=== PATIENT | female | born 1990 ===

== ENCOUNTER 2017-07-21 08:13 | Emergency (ER) | payer MEDICAID ==
[2017-07-21] MEDS ORDERED: Sodium Chloride 0.9% 1,000 ML IV STA (08:32)
[2017-07-21 08:34] VITALS: TEMP 98.3
--- NOTE | 2017-07-21 08:39 | ED PDOC ---
Arrival/HPI - General Chief Complaint: Abdominal Pain Time Seen by Provider: 07/21/17 08:22 Historian: Patient - History of Present Illness Narrative History of Present Illness (Text): 07/21/17 08:36 A 27 year old female, with no significant past medical history, presents to the emergency room complaining of 2 week duration right sided abdominal pain and joint pain. She describes the pain as sharp and intermittent. The patient states that she has also been experiencing decreased appetite, a decrease in urine output, and some loose stools. The patient denies fevers, chills, headache , dizziness, sore throat, cough, chest pain, shortness of breath, dyspnea on exertion, nausea, vomiting, diarrhea, neck/back pain, or any other complaint. Time/Duration: Other (2 weeks) Symptom Onset: Gradual Symptom Course: Unchanged Activities at Onset: Rest, Light Context: Home Past Medical History - Provider Review Nursing Documentation Reviewed: Yes - Infectious Disease Hx of Infectious Diseases: None - Psychiatric Hx Substance Use: No - Anesthesia Hx Anesthesia: No Hx Anesthesia Reactions: No Hx Malignant Hyperthermia: No Family/Social History - Physician Review Nursing Documentation Reviewed: Yes Family/Social History: No Known Family HX Smoking Status: Never Smoked Hx Alcohol Use: No Hx Substance Use: No Allergies/Home Meds Allergies/Adverse Reactions: Allergies No Known Allergies Allergy (Verified 07/21/17 08:31) Review of Systems - Physician Review All systems were reviewed & negative as marked: Yes - Review of Systems Constitutional: absent: Fevers, Night Sweats ENT: absent: Sore Throat Respiratory: absent: SOB, Cough Cardiovascular: absent: Chest Pain, GOODE Gastrointestinal: Abdominal Pain, Stool Changes (Loose stools), Appetite Changes (Decreased appetite). absent: Diarrhea, Nausea, Vomiting Genitourinary Female: Urine Output Changes (Decreased urine output.) Musculoskeletal: Arthralgias. absent: Back Pain, Neck Pain Neurological: absent: Headache, Dizziness Physical Exam Vital Signs Reviewed: Yes Vital Signs Temp Pulse Resp BP Pulse Ox 07/21/17 13:02 98.3 F 74 18 100/58 L 99 07/21/17 12:00 82 18 102/79 98 07/21/17 10:14 88 18 110/79 98 07/21/17 08:34 98.3 F 07/21/17 08:27 116 H 20 109/58 L 99 Temperature: Afebrile Blood Pressure: Hypotensive Pulse: Tachycardic Respiratory Rate: Normal Appearance: Positive for: Well-Appearing, Non-Toxic, Comfortable Pain Distress: None Mental Status: Positive for: Alert and Oriented X 3 - Systems Exam Head: Present: Atraumatic, Normocephalic Pupils: Present: PERRL Extroacular Muscles: Present: EOMI Conjunctiva: Present: Normal Mouth: Present: Moist Mucous Membranes Neck: Present: Normal Range of Motion Respiratory/Chest: Present: Clear to Auscultation, Good Air Exchange. No: Respiratory Distress, Accessory Muscle Use Cardiovascular: Present: Tachycardic Abdomen: Present: Tenderness (Tenderness to RUQ and RLQ), Guarding. No: Rebound , McBurney's Point Tender Back: Present: Normal Inspection Upper Extremity: Present: Normal Inspection. No: Cyanosis, Edema Lower Extremity: Present: Normal Inspection. No: Edema Neurological: Present: GCS=15, CN II-XII Intact, Speech Normal Skin: Present: Warm, Dry, Normal Color. No: Rashes Psychiatric: Present: Alert, Oriented x 3, Normal Insight, Normal Concentration Medical Decision Making ED Course and Treatment: 07/21/17 08:42 Impression: A 27 year old female presents to the emergency room complaining of 2 week duration sharp, intermittent right sided abdominal pain, joint pain, decreased appetite, and loose stools. r/o Cholecytitis r/o Appy Plan: -- Abdomen/Pelvis CT -- Labs -- Pepcid -- Reassess and disposition Progress Notes: PROCEDURE: CT Abdomen and Pelvis with contrast Dictator : Renu Ordoñez MD Report Date : 07/21/2017 12:15:36 IMPRESSION: Unremarkable CT scan of the abdomen for acute inflammatory process. No appreciable CT scan evidence of cholecystitis or appendicitis. 07/21/17 12:52: On re-evaluation the patient feels better and is in no acute distress. Abdomen is non-tender. Patient is tolerating fluids. I have discussed the results and plan with the patient, who expresses understanding. Patient is in agreement with the plan to discharge the patient home. Patient is stable for discharge. Patient was instructed to follow up with PMD in 1-2 days or return if symptoms persist/worsen or new concerning symptoms arise. - Lab Interpretations Lab Results: 07/21/17 09:00 07/21/17 09:00 Lab Results 07/21/17 09:00: Sodium 141, Potassium 3.5 L, Chloride 103, Carbon Dioxide 22, Anion Gap 19, BUN 9, Creatinine 0.5 L, Est GFR ( Amer) > 60, Est GFR (Non -Af Amer) > 60, Random Glucose 92, Calcium 9.1, Total Bilirubin 0.3, AST 28, ALT 28, Alkaline Phosphatase 82, Total Protein 7.7, Albumin 4.7, Globulin 3.0, Albumin/Globulin Ratio 1.6, Lipase 74 07/21/17 09:00: WBC 10.7, RBC 4.77, Hgb 12.0, Hct 36.8, MCV 77.1 L, MCH 25.2, MCHC 32.6, RDW 16.0 H, Plt Count 311, MPV 9.5, Gran % 71.6 H, Lymph % (Auto) 16.4 L, Ponce % (Auto) 7.9 H, Eos % (Auto) 3.8, Baso % (Auto) 0.3, Gran # 7.66 H , Lymph # (Auto) 1.8, Ponce # (Auto) 0.8 H, Eos # (Auto) 0.4, Baso # (Auto) 0.03 I have reviewed the lab results: Yes - RAD Interpretation Radiology Orders: 07/21/17 08:32 ABD PELVIS PO & IV CONTRAST [CT] Stat - Medication Orders Current Medication Orders: Discontinued Medications Famotidine (Pepcid) 20 mg IVP STAT STA Stop: 07/21/17 08:33 Last Admin: 07/21/17 08:59 Dose: 20 mg IVP Administration Document 07/21/17 08:59 EWO (Rec: 07/21/17 09:00 SNEHA [id number]) Charges for Administration # of IVP Administrations 1 Sodium Chloride (Sodium Chloride 0.9%) 1,000 mls @ 1,000 mls/hr IV .Q1H STA Stop: 07/21/17 09:31 Last Admin: 07/21/17 09:00 Dose: 1,000 mls/hr eMAR Start Stop Document 07/21/17 09:00 SNEHA (Rec: 07/21/17 09:00 SNEHA [id number]) Intravenous Solution Start Date 07/21/17 Start Time 09:00 End Date 07/21/17 End time 10:00 Total Infusion Time 60 Ketorolac Tromethamine (Toradol) 30 mg IVP STAT STA Stop: 07/21/17 08:33 Last Admin: 07/21/17 09:00 Dose: 30 mg MAR Pain Assessment Document 07/21/17 09:00 EWO (Rec: 07/21/17 09:00 [facility] [id number]) Pain Reassessment Is this a pain reassessment? No Sleep Is patient sleeping during reassessment? No Presence of Pain Presence of Pain Yes Pain Scale Used Pain Scale Used Numeric Location Left, Right or Bilateral Right Upper or Lower Lower Pain Location Body Site Abdomen Description Description Intermittent Intensity of Pain at present 3 IVP Administration Document 07/21/17 09:00 EWO (Rec: 07/21/17 09:00 [facility] [id number]) Charges for Administration # of IVP Administrations 1 Potassium Chloride (K-Dur 20 Meq Er Tab) 40 meq PO STAT STA Stop: 07/21/17 09:18 Last Admin: 07/21/17 09:32 Dose: 40 meq - Scribe Statement The provider has reviewed the documentation as recorded by the Claritza Perry Provider Scribe Attestation: All medical record entries made by the Scribisaias were at my direction and personally dictated by me. I have reviewed the chart and agree that the record accurately reflects my personal performance of the history, physical exam, medical decision making, and the department course for this patient. I have also personally directed, reviewed, and agree with the discharge instructions and disposition. Disposition/Present on Arrival - Present on Arrival Any Indicators Present on Arrival: No History of DVT/PE: No History of Uncontrolled Diabetes: No Urinary Catheter: No History of Decub. Ulcer: No History Surgical Site Infection Following: None - Disposition Have Diagnosis and Disposition been Completed?: Yes Diagnosis: Abdominal pain Disposition: HOME/ ROUTINE Disposition Time: 13:02 Patient Plan: Discharge Condition: IMPROVED Discharge Instructions (ExitCare): Acute Abdomen (Belly Pain) Additional Instructions: Ms Maier, thank you for letting us take care of you today. Your provider was Dr. Griffin. You were treated for Abdominal Pain. The emergency medical care you received today was directed at your acute symptoms. If you were prescribed any medication, please fill it and take as directed. It may take several days for your symptoms to resolve. Return to the Emergency Department if your symptoms worsen, do not improve, or if you have any other problems. Please contact your doctor or call one of the physicians/clinics you have been referred to that are listed on the Patient Visit Information form that is included in your discharge packet. Bring any paperwork you were given at discharge with you along with any medications you are taking to your follow up visit. Our treatment cannot replace ongoing medical care by a primary care provider (PCP) outside of the emergency department. Thank you for allowing the [facility] team to be part of your care today. If you had an X-Ray or CT scan: A Radiologist will review the ED reading if any change in treatment is needed we will contact you. If you had a blood, urine, or wound culture: It will take several days for the results, if any change in treatment is needed we will contact you. If you had an STI test: It will take 48 hours for the results. Please call after 1 week if you have not heard back. Prescriptions: Ranitidine HCl [Zantac] 150 mg PO BID PRN #30 tablet PRN Reason: Pain, Mild (1-3) Referrals: [facility] [place] - Follow up with primary [facility] [place] [facility] [place], [Non-Staff] - Follow up with primary Forms: [employer] ([place]rainian), WORK NOTE
[2017-07-21] MEDS ORDERED: Iohexol 240 (50 ml) ONE (08:59)
[2017-07-21 09:06] LABS: BASO # 0.03 K/mm3 (0.0-2.0); BASO % 0.3 % (0.0-3.0); EOS # 0.4 (0.0-0.7); EOS % 3.8 % (1.5-5.0); GRAN # 7.66 (1.4-6.5); GRAN % 71.6 % (50.0-68.0); LYMPH # 1.8 (1.2-3.4); LYMPH % 16.4 % (22.0-35.0); MEAN CELL VOLUME 77.1 fl (80.0-105.0); MEAN CORPUSCULAR HEMOGLOBIN 25.2 pg (25.0-35.0); MEAN CORPUSCULAR HGB CONC 32.6 g/dl (31.0-37.0); MEAN PLATELET VOLUME 9.5 fl (7.0-11.0); MONO # 0.8 (0.1-0.6); MONO % 7.9 % (1.0-6.0); RBC 4.77 10^6/uL (3.5-6.1); WHITE BLOOD COUNT 10.7 10^3/ul (4.5-11.0)
[2017-07-21 09:15] LABS: ALB/GLOB RATIO 1.6 (1.1-1.8); ALBUMIN 4.7 g/dL (3.0-4.8); ALT/SGPT 28 U/L (7-56); AST/SGOT 28 U/L (14-36); BLOOD UREA NITROGEN 9 mg/dL (7-21); CALCIUM 9.1 mg/dL (8.4-10.5); GFR AFRICAN-AMERICAN > 60; GFR NON-AFRICAN AMERICAN > 60; LIPASE 74 U/L (23-300)
[2017-07-21] MEDS ORDERED: Potassium Chloride 20 mEq ER Tab PO STA (09:17)
[2017-07-21] MEDS ORDERED: Iohexol 350 MG/100 ML VIAL ONE (11:38)
--- NOTE | 2017-07-21 12:17 | CT ---
PROCEDURE: CT Abdomen and Pelvis with contrast HISTORY: abd pain r/o appy r/o cholecystitis COMPARISON: None. TECHNIQUE: Contrast dose: 100 milliliters visi 350 Radiation dose: Total exam DLP = 208 mGy-cm. This CT exam was performed using one or more of the following dose reduction techniques: Automated exposure control, adjustment of the mA and/or kV according to patient size, and/or use of iterative reconstruction technique. FINDINGS: LOWER THORAX: No infiltrate or effusion is seen at the lung bases. Visualized esophagus, stomach, and duodenum are unremarkable although the stomach is not adequately distended limiting evaluation for wall thickening. LIVER: Liver shows no evidence of focal mass or intrahepatic ductal dilatation. Liver is normal in size. GALLBLADDER AND BILE DUCTS: Unremarkable. PANCREAS: Unremarkable. No gross lesion or ductal dilatation. SPLEEN: Unremarkable. ADRENALS: Unremarkable. No mass. KIDNEYS AND URETERS: Unremarkable. No hydronephrosis. No solid mass. VASCULATURE: Unremarkable. No aortic aneurysm. BOWEL: Unremarkable. No obstruction. No gross mural thickening. APPENDIX: Normal appendix. PERITONEUM: Unremarkable. No free fluid. No free air. LYMPH NODES: Unremarkable. No enlarged lymph nodes. BLADDER: Unremarkable. REPRODUCTIVE: Unremarkable. BONES: No acute fracture. OTHER FINDINGS: None. IMPRESSION: Unremarkable CT scan of the abdomen for acute inflammatory process. No appreciable CT scan evidence of cholecystitis or appendicitis.
[2017-07-21 13:01] VITALS: RESP 18
[2017-07-21 13:03] VITALS: BP 100/58; PULSE 74; O2SAT 99
== END 2017-07-21 13:03 | disposition home or self-care (01) ==
LOC: ED 08:13
DX: R10.9 Unspecified abdominal pain (principal)
CPT/HCPCS: 74177; 80053; 83690; 85025; 96361; 96374; 96375; 99284; J1885; J7040; Q9966; Q9967

== ENCOUNTER 2018-05-09 22:03 | Emergency (ER) | payer MEDICAID ==
--- NOTE | 2018-05-09 22:26 | ED PDOC ---
Arrival/HPI - General Chief Complaint: Fever Time Seen by Provider: 05/09/18 22:08 Historian: Patient - History of Present Illness Narrative History of Present Illness (Text): 05/09/18 22:23 28 year old female, with no significant past medical history, presents to the emergency department with fever and cough, since today. Patient states she also has associated headache, and body aches. Patient states her temperature at home was 102. Patient informs she did not try any NSAID antipyretic at home. Patient denies any dysuria, chest pain, shortness of breath, abdominal pain, nausea, vomiting, diarrhea, back pain, neck pain, or any other complaint. Time/Duration: 24 hours Symptom Onset: Gradual Symptom Course: Unchanged Quality: Aching Activities at Onset: Light Context: Home Past Medical History - Provider Review Nursing Documentation Reviewed: Yes - Infectious Disease Hx of Infectious Diseases: None - Reproductive Currently : No - Psychiatric Hx Substance Use: No - Anesthesia Hx Anesthesia: No Hx Anesthesia Reactions: No Hx Malignant Hyperthermia: No Family/Social History - Physician Review Nursing Documentation Reviewed: Yes Family/Social History: No Known Family HX Smoking Status: Never Smoked Hx Alcohol Use: No Hx Substance Use: No Allergies/Home Meds Allergies/Adverse Reactions: Allergies No Known Allergies Allergy (Verified 05/09/18 22:16) Review of Systems - Physician Review All systems were reviewed & negative as marked: Yes - Review of Systems Constitutional: Fevers Respiratory: Cough. absent: SOB Cardiovascular: absent: Chest Pain Gastrointestinal: absent: Abdominal Pain, Diarrhea, Nausea, Vomiting Genitourinary Female: absent: Dysuria Musculoskeletal: absent: Back Pain, Neck Pain Neurological: Headache Physical Exam Vital Signs Reviewed: Yes Vital Signs Temp Pulse Resp BP Pulse Ox 05/09/18 22:15 102.2 F H 116 H 18 112/76 98 Temperature: Febrile Blood Pressure: Normal Pulse: Tachycardic Respiratory Rate: Normal Appearance: Positive for: Well-Appearing, Non-Toxic, Comfortable Pain Distress: None Mental Status: Positive for: Alert and Oriented X 3 - Systems Exam Head: Present: Atraumatic, Normocephalic Pupils: Present: PERRL Extroacular Muscles: Present: EOMI Conjunctiva: Present: Normal Mouth: Present: Moist Mucous Membranes Neck: Present: Normal Range of Motion Respiratory/Chest: Present: Clear to Auscultation, Good Air Exchange. No: Respiratory Distress, Accessory Muscle Use Cardiovascular: Present: Regular Rate and Rhythm, Normal S1, S2. No: Murmurs Abdomen: No: Tenderness, Distention, Peritoneal Signs Back: Present: Normal Inspection Upper Extremity: Present: Normal Inspection. No: Cyanosis, Edema Lower Extremity: Present: Normal Inspection. No: Edema Neurological: Present: GCS=15, CN II-XII Intact, Speech Normal Skin: Present: Warm, Dry, Normal Color. No: Rashes Psychiatric: Present: Alert, Oriented x 3, Normal Insight, Normal Concentration Medical Decision Making ED Course and Treatment: 05/09/18 22:29 Impression: 28 year old female presents with flu-like symptoms Plan: -- Chest X-ray -- Tylenol -- Rapid Strep -- Influenza A/B -- Urinalysis -- Reassess and disposition Prior Visits: Notes and results from previous visits were reviewed Progress Notes: 05/09/18 23:49 Chest X-ray reviewed by me, shows: No active disease 05/10/18 00:09 Patient asked me to examine a mole on her back which she reports is "getting better". I advised patient to seek outpatient dermatology for biopsy.. 05/10/18 01:32 symtoms x 1 day lungs cta cxr neg ua neg. HR on dc 90s, feeling better. susepct tachhycardia 2/2 fever. unleikely sepsis. strict return precations - RAD Interpretation Radiology Orders: 05/09/18 22:21 CHEST TWO VIEWS (PA/LAT) [RAD] Stat - Medication Orders Current Medication Orders: Acetaminophen (Tylenol 325mg Tab) 975 mg PO STAT STA Stop: 05/09/18 22:22 - Scribe Statement The provider has reviewed the documentation as recorded by the Scribe Francisco Donato Provider Scribe Attestation: All medical record entries made by the Scribe were at my direction and personally dictated by me. I have reviewed the chart and agree that the record accurately reflects my personal performance of the history, physical exam, medical decision making, and the department course for this patient. I have also personally directed, reviewed, and agree with the discharge instructions and disposition. Disposition/Present on Arrival - Present on Arrival Any Indicators Present on Arrival: No History of DVT/PE: No History of Uncontrolled Diabetes: No Urinary Catheter: No History of Decub. Ulcer: No History Surgical Site Infection Following: None - Disposition Have Diagnosis and Disposition been Completed?: Yes Diagnosis: Viral syndrome Disposition: HOME/ ROUTINE Disposition Time: 12:30 Condition: STABLE Discharge Instructions (ExitCare): Flu, Cough, Runny Nose, and the Common Cold, Viral Syndrome (DC) Additional Instructions: return to any emergency room with worsening. Prescriptions: Oseltamivir Phosphate [Tamiflu] 75 mg PO BID #10 capsule Referrals: Shayan Epps MD [Primary Care Provider] - Follow up with primary Forms: [employer] ([place]ese)
[2018-05-09 23:25] LABS: PH,URINE 8.5 (4.7-8.0); URINE BILIRUBIN NEGATIVE (NEGATIVE); URINE BLOOD NEGATIVE (NEGATIVE); URINE GLUCOSE (UA) NEGATIVE (NEGATIVE); URINE LEUKOCYTE ESTERASE NEGATIVE Leu/uL (NEGATIVE); URINE PROTEIN NEGATIVE mg/dL (<30 mg/dL); URINE UROBILINOGEN 0.2 E.U./dL (<1 E.U./dL)
[2018-05-09 23:27] LABS: URINE APPEARANCE CLEAR (CLEAR); URINE COLOR YELLOW (YELLOW)
[2018-05-09 23:29] LABS: HCG,QUALITATIVE URINE NEGATIVE (NEGATIVE)
[2018-05-09 23:48] LABS: INFLUENZA A B NEGATIVE FOR FLU A/B (NEGATIVE)
[2018-05-10 00:29] VITALS: BP 106/57; PULSE 92; RESP 16; TEMP 99.2; O2SAT 97
--- NOTE | 2018-05-10 10:19 | RAD ---
Date of service: 05/09/2018 HISTORY: cough COMPARISON: No prior. TECHNIQUE: Chest PA and lateral FINDINGS: LUNGS: No radiographic evidence of focal consolidation in the lungs. PLEURA: No significant pleural effusion identified. No pneumothorax apparent. CARDIOVASCULAR: No aortic atherosclerotic calcification present. Normal cardiac size. No pulmonary vascular congestion. OSSEOUS STRUCTURES: No significant abnormalities. VISUALIZED UPPER ABDOMEN: Normal. OTHER FINDINGS: None. IMPRESSION: No evidence of pneumonia or consolidation in the lungs.
== END 2018-05-10 00:26 | disposition home or self-care (01) ==
LOC: ED 22:03
DX: B34.9 Viral infection, unspecified (principal)